=== PATIENT | male | born 1975 | race Caucasian/White ===

== ENCOUNTER 2017-01-21 16:15 | Emergency (ER) | payer MEDICAID ==
[2017-01-21] MEDS ORDERED: ONDANSETRON ODT 4 MG TAB (6 TAB/DSPK) PO PRN (17:05)
[2017-01-21 17:09] VITALS: BP 137/95
--- NOTE | 2017-01-21 17:10 | ER Document Report ---
ED Skin Rash/Insect Bite/Abscs - General Chief Complaint: Bee Sting Stated Complaint: POSSIBLE INSECT BITE Time Seen by Provider: 01/21/17 17:05 Notes: Patient got into some ground nest of some bees about 1 PM and got stung multiple times, 15 or 20 primarily around the scalp and forehead. He was nauseated and did vomit, but did not develop any difficulty breathing or wheezing, etc. Did not develop a rash, although he did have some itching. He vomited a total of 3 times. EMS transported the patient and gave him some Zofran and Benadryl and he feels better now. Does not feel he needs to have any further evaluation. Declines any pain medications. Declines a note for work. TRAVEL OUTSIDE OF THE [place] IN LAST 30 DAYS: No - Related Data Allergies/Adverse Reactions: No Known Allergies Allergy (Verified 01/21/17 16:32) Past Medical History - Social History Smoking Status: Never Smoker Chew tobacco use (# tins/day): No Frequency of alcohol use: None Drug Abuse: None Family History: Reviewed & Not Pertinent Review of Systems - Review of Systems Notes: REVIEW OF SYSTEMS: CONSTITUTIONAL : Denies fever. EENT: Denies eye, ear, nose or mouth or throat pain or other symptoms. No soft tissue or mucous membrane swelling. CARDIOVASCULAR: Denies chest pain. RESPIRATORY: Denies cough, chest congestion, or shortness of breath. No wheezes heard. GASTROINTESTINAL: Denies abdominal pain but did have nausea and vomiting GENITOURINARY: Denie. difficulty or painful urinating, urinary frequency, blood in urine. MUSCULOSKELETAL: Denies back or neck pain. Denies joint pain or swelling. SKIN: Denies rash or skin lesions. NEUROLOGICAL: Denies LOC or altered mental status. Denies headache. Denies sensory loss or motor deficits. ALL OTHER SYSTEMS REVIEWED AND NEGATIVE. Physical Exam - Vital signs Vitals: Temp Pulse Resp BP Pulse Ox 98.4 F 100 14 148/98 H 96 01/21/17 16:30 01/21/17 16:30 01/21/17 16:30 01/21/17 16:30 01/21/17 16:30 Interpretation: Normal - Notes Notes: PHYSICAL EXAMINATION: GENERAL: Well-appearing, in no acute distress. Vital signs are all normal. HEAD: Atraumatic, normocephalic. Patient has quite a few small little lumps on his forehead and scalp corresponding to where he says he was stung by the bees. I do not see any stingers that need to be removed in any of these bumps. EYES: Pupils equal round and reactive to light, extraocular movements intact. ENT: oropharynx clear without exudates. Moist mucous membranes. NECK: Normal range of motion, supple. LUNGS: Breath sounds clear and equal bilaterally. HEART: Regular rate and rhythm without murmurs. ABDOMEN: Soft, nontender. No guarding or rebound. BACK: No tenderness throughout entire back. EXTREMITIES: Normal range of motion without pain. NEUROLOGICAL: Normal speech, normal gait. Normal sensory, motor, and reflex exams. Awake, alert, and oriented x3. Cranial nerves normal. PSYCH: Normal mood, normal affect. SKIN: Warm, dry, no rashes. No hives or urticaria. Course - Re-evaluation Re-evalutation: 01/21/17 21:36 By the time I assessed the patient in triage, it had been several hours since the original bee stings. Patient is stable and does not need any further treatment at this time. - Vital Signs Vital signs: Temp Pulse Resp BP Pulse Ox 97.9 F 97 20 137/95 H 100 01/21/17 17:08 01/21/17 17:08 01/21/17 17:08 01/21/17 17:08 01/21/17 17:08 Discharge - Discharge Clinical Impression: Bee sting Qualifiers: Encounter type: initial encounter Injury intent: accidental or unintentional Qualified Code(s): T63.441A - Toxic effect of venom of bees, accidental ( unintentional), initial encounter Condition: Stable Disposition: HOME, SELF-CARE Additional Instructions: Insect Sting You've been stung by an insect. The venom can cause pain, redness, and swelling. Right after the sting, we sometimes use adrenaline to reduce the reaction to the venom. This also stops any allergic reaction. You should apply cold compresses, rest and elevate the affected part, and take antihistamines. A more severe, itchy red swelling sometimes develops the next day. This is a local allergic reaction to the venom. This local allergy isn't dangerous. We treat it with cortisone-type medicine and antihistamines. Sometimes we use antibiotics if we're worried about infection. If you develop a fever, chills, a red streak, or swollen glands in the area of the bite, infection may be starting. Return at once. Insect stings from the bee and hornet family may cause a severe allergic reaction. Symptoms include hoarseness, shortness of breath, general redness of the skin, general itching, or lightheadedness. If any of these symptoms occur, you'll be treated with adrenalin and cortisone-like steroids. You should carry an "Anaphylaxis Kit" with you in the summer months so you can administer these medications to yourself before getting emergency medical care. Antinausea Medication You have been given a medication to suppress nausea and vomiting. This type of medication can be given as a shot, pill, or suppository. It will usually last for many hours. Pills and shots usually last six to eight hours, suppositories last about 12 hours. For the typical illness, only one or two doses of the medication may be necessary. Mild lightheadedness may occur. This type of medicine can cause drowsiness. Do not drive or operate dangerous machinery while under its influence. Do not mix with alcohol. See your doctor at once if you have muscle spasms or tightness, or uncontrollable motions (particularly of the neck, mouth, or jaw). Persistent vomiting or severe lightheadedness should also be evaluated by the physician. Diphenhydramine for itching or rash The use of diphenhydramine (Benadryl) has been recommended to control allergic symptoms. The 25 mg strength is available over- the-counter, as well as the elixir. This antihistamine is used for many symptoms. It's useful for itching, watering eyes and nose, allergic swelling, hives, and insect stings. The medication can be repeated four times daily. Age Elixir (12.5 mg/tsp) 25 mg pill adult 1-2 tabs Antihistamines may cause drowsiness, especially with the first dose. Do not operate machinery or drive while under the effects of the medication. Do not combine the medication with alcohol, or with any other medication without talking to your doctor. FOLLOW-UP CARE: If you have been referred to a physician for follow-up care, call the physician s office for an appointment as you were instructed or within the next two days. If you experience worsening or a significant change in your symptoms, notify the physician immediately or return to the Emergency Department at any time for re-evaluation. Referrals: PUSHPA QUINTEROS III, MD [Primary Care Provider] - Follow up as needed
== END 2017-01-21 17:13 | disposition home or self-care (01) ==
LOC: ER 16:15
DX: T63.444A Toxic effect of venom of bees, undetermined, initial encounter (principal); R11.2 Nausea with vomiting, unspecified
CPT/HCPCS: 99282